=== PATIENT | female | born 2000 | race American Indian/Alaskan Native ===

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

== ENCOUNTER 2018-08-28 22:10 | Emergency (ER) | payer MEDICAID ==
[2018-08-28 22:22] VITALS: O2SAT 99
--- NOTE | 2018-08-28 22:49 | ED PDOC ---
HPI: General Adult Time Seen by Provider: 08/28/18 22:25 Chief Complaint (Nursing): Dental Pain Chief Complaint (Provider): left facial swelling History Per: Patient History/Exam Limitations: no limitations Onset/Duration Of Symptoms: Days (1) Current Symptoms Are (Timing): Still Present Additional Complaint(s): 17 y/o female presents for evaluation of swelling to left side of face x 1 day. Patient states she has had similar symptoms in past and was admitted to the hospital for cellulitis and had a tooth on that side pulled. Denies fever, nausea/vomiting, toothache, difficulty speaking/swallowing, chest pain, shortness of breath, palpitations. Past Medical History Reviewed: Historical Data, Nursing Documentation, Vital Signs Vital Signs: Last Vital Signs Temp 98.5 F 08/28/18 22:21 Pulse 98 H 08/28/18 22:21 Resp 16 08/28/18 22:21 BP 147/94 H 08/28/18 22:21 Pulse Ox 99 08/28/18 22:21 - Medical History PMH: No Chronic Diseases - Surgical History Surgical History: No Surg Hx - Family History Family History: States: Unknown Family Hx - Home Medications Home Medications: Ambulatory Orders Medication Instructions Recorded Amoxicillin 875 mg PO BID #20 tab 08/10/14 Cetirizine HCl [Zyrtec] 10 mg PO DAILY #30 cap 03/03/17 Sodium Chloride [[facility] 1 - 2 spray NS BID #44 ml 03/03/17 Pharmacy Saline Nasal [place] 44 ] Clindamycin [Cleocin] 300 mg PO TID #20 cap 08/28/18 Ibuprofen [Motrin Tab] 1 tab PO Q6 PRN #15 tab 08/28/18 - Allergies Allergies/Adverse Reactions: Allergies Allergy/AdvReac Type Severity Reaction Status Date / Time No Known Allergies Allergy Verified 08/28/18 22:21 Review of Systems ROS Statement: Except As Marked, All Systems Reviewed And Found Negative Musculoskeletal: Positive for: Other (left facial swelling) Physical Exam - Reviewed Nursing Documentation Reviewed: Yes Vital Signs Reviewed: Yes - Physical Exam Appears: Positive for: Well, Non-toxic, No Acute Distress Head Exam: Positive for: ATRAUMATIC, NORMAL INSPECTION, NORMOCEPHALIC Skin: Positive for: Normal Color Eye Exam: Positive for: Normal appearance ENT: Positive for: Other (left facial edema without erythema, fluctaunce. Left upper 2nd molar removed, + upper gingival tenderness without abscess noted) Neck: Positive for: Normal, Painless ROM Cardiovascular/Chest: Positive for: Regular Rate, Rhythm Respiratory: Positive for: Normal Breath Sounds Gastrointestinal/Abdominal: Positive for: Normal Exam Back: Positive for: Normal Inspection Extremity: Positive for: Normal ROM Lymphatic: Positive for: Normal Exam Neurologic/Psych: Positive for: Alert, Oriented (x3) - ECG O2 Sat by Pulse Oximetry: 99 - Progress ED Course And Treament: Ibuprofen PO Patient educated on findings, discharged with rx Clindamycin, Ibuprofen (doses given in ED) Advised follow up dentist and PMD this week Return precautions given Disposition - Clinical Impression Clinical Impression: Left facial swelling, Mouth pain - Patient ED Disposition Is Patient to be Admitted: No Counseled Patient/Family Regarding: Diagnosis, Need For Followup, Rx Given - Disposition Disposition: Routine/Home Disposition Time: 00:14 Condition: IMPROVED Prescriptions: Clindamycin [Cleocin] 300 mg PO TID #20 cap Ibuprofen [Motrin Tab] 1 tab PO Q6 PRN #15 tab PRN Reason: Pain, Moderate (4-7) Instructions: Dental Pain
[2018-08-29 00:33] VITALS: BP 134/80; PULSE 86; RESP 18; TEMP 98.3
== END 2018-08-29 00:21 | disposition home or self-care (01) ==
LOC: H.ER 22:10
DX: R22.0 Localized swelling, mass and lump, head (principal); K08.89 Other specified disorders of teeth and supporting structures

== ENCOUNTER 2018-10-04 20:23 | Emergency (ER) | payer MEDICAID ==
--- NOTE | 2018-10-04 23:30 | ED PDOC ---
HPI: General Adult Time Seen by Provider: 10/04/18 22:57 Chief Complaint (Nursing): Abnormal Skin Integrity Chief Complaint (Provider): neck pain History Per: Patient History/Exam Limitations: no limitations Onset/Duration Of Symptoms: Days (4) Current Symptoms Are (Timing): Still Present Additional Complaint(s): 17 y/o female presents for evaluation of left-sided neck pain x 4 days. States she woke up with the pain, which is worsened by movement of neck. Denies fever, ear pain, throat pain, difficulty speaking/swallowing, nausea/vomiting, cough, chest pain, shortness of breath, palpitations, abdominal pain Past Medical History Reviewed: Historical Data, Nursing Documentation, Vital Signs Vital Signs: Last Vital Signs Temp 98.7 F 10/04/18 21:58 Pulse 96 H 10/04/18 21:58 Resp 16 10/04/18 21:58 BP 138/78 10/04/18 21:58 Pulse Ox 98 10/04/18 21:58 - Medical History PMH: Anemia - Surgical History Surgical History: No Surg Hx - Family History Family History: States: Unknown Family Hx - Home Medications Home Medications: Ambulatory Orders Medication Instructions Recorded Amoxicillin 875 mg PO BID #20 tab 08/10/14 Cetirizine HCl [Zyrtec] 10 mg PO DAILY #30 cap 03/03/17 Sodium Chloride [[facility] 1 - 2 spray NS BID #44 ml 03/03/17 Pharmacy Saline Nasal [place] 44 ] Clindamycin [Cleocin] 300 mg PO TID #20 cap 08/28/18 Ibuprofen [Motrin Tab] 1 tab PO Q6 PRN #15 tab 08/28/18 Cyclobenzaprine [Cyclobenzaprine 10 mg PO BID PRN #10 tab 10/05/18 HCl] - Allergies Allergies/Adverse Reactions: Allergies Allergy/AdvReac Type Severity Reaction Status Date / Time No Known Allergies Allergy Verified 08/28/18 22:21 Review of Systems ROS Statement: Except As Marked, All Systems Reviewed And Found Negative Musculoskeletal: Positive for: Neck Pain Physical Exam - Reviewed Nursing Documentation Reviewed: Yes Vital Signs Reviewed: Yes - Physical Exam Appears: Positive for: Well, Non-toxic, No Acute Distress Head Exam: Positive for: ATRAUMATIC, NORMAL INSPECTION, NORMOCEPHALIC Skin: Positive for: Normal Color Eye Exam: Positive for: Normal appearance ENT: Positive for: Normal ENT Inspection Neck: Positive for: Limited ROM (pain with tilt, rotation, flexion/extension due to pain left side of neck. Tender to palpate left SCM without ecchymosis, palpable mass. ) Cardiovascular/Chest: Positive for: Regular Rate, Rhythm Respiratory: Positive for: Normal Breath Sounds Gastrointestinal/Abdominal: Positive for: Normal Exam Back: Positive for: Normal Inspection Extremity: Positive for: Normal ROM Lymphatic: Positive for: Normal Exam Neurologic/Psych: Positive for: Alert, Oriented (x3) - Laboratory Results Result Diagrams: 10/05/18 00:15 10/05/18 00:15 - ECG O2 Sat by Pulse Oximetry: 98 - Progress ED Course And Treament: Patient with + preg; denies vaginal bleeding, abdominal pain -cbc -cmp -beta hcg -PO tylenol Patient educated on findings, discharged with rx Flexeril Advised to continue Tylenol PRN pain Warm compresses Follow up PMD within 2-3 days Advised to start vitamins and f/up with training technician Return precautions given Disposition - Clinical Impression Clinical Impression: Torticollis, - Patient ED Disposition Is Patient to be Admitted: No Counseled Patient/Family Regarding: Studies Performed, Diagnosis, Need For Followup, Rx Given - Disposition Referrals: [facility] [Outside] [facility] [Outside] Disposition: Routine/Home Disposition Time: 02:16 Condition: IMPROVED Prescriptions: Cyclobenzaprine [Cyclobenzaprine HCl] 10 mg PO BID PRN #10 tab PRN Reason: Muscle Spasm Instructions: Torticollis, Adult, - The First Month Forms: [employer] [employer] ([place])
[2018-10-05 00:23] LABS: BASO # 0.1 K/uL (0.0-0.2); EOS # 0.2 K/uL (0.0-0.7); EOS % 1.9 % (0.0-4.0); HEMOGLOBIN 9.4 g/dL (12.0-16.0); LYMPH # 1.8 K/uL (1.0-4.3); LYMPH % 15.3 % (20.0-40.0); MEAN CELL VOLUME 63.1 fl (81.0-99.0); MEAN CORPUSCULAR HEMOGLOBIN 19.9 pg (27.0-31.0); MEAN CORPUSCULAR HGB CONC 31.5 g/dL (33.0-37.0); MEAN PLATELET VOLUME 8.8 fl (7.2-11.7); MONO % 8.3 % (0.0-10.0); NEUT # 8.6 K/uL (1.8-7.0); NEUT % 73.5 % (50.0-75.0); RBC 4.72 Mil/uL (3.80-5.20); RED CELL DISTRIBUTION WIDTH 17.4 % (11.5-14.5); WHITE BLOOD COUNT 11.7 K/uL (4.8-10.8)
[2018-10-05 00:44] LABS: ALB/GLOB RATIO 1.3 (1.0-2.1)
[2018-10-05 00:50] LABS: ALBUMIN 4.7 g/dL (3.5-5.0); ALT/SGPT 27 U/L (9-52); AST/SGOT 25 U/L (14-36); BLOOD UREA NITROGEN 10 mg/dl (7-17); GFR NON-AFRICAN AMERICAN > 60
[2018-10-05 02:32] VITALS: BP 135/67; PULSE 84; RESP 18; TEMP 98.5; O2SAT 99
== END 2018-10-05 02:41 | disposition home or self-care (01) ==
LOC: H.ER 20:23
DX: M43.6 Torticollis (principal)